=== PATIENT | female | born 1960 | race Caucasian/White ===

== ENCOUNTER 2016-07-28 17:18 | Emergency (ER) | payer SELFPAY ==
[~2016-07-28] VITALS: Ht 172.7 cm; Wt 100.0 kg
[2016-07-28 17:39] VITALS: BP 134/80; PULSE 80; RESP 16; TEMP 98; O2SAT 98
[2016-07-28] MEDS ORDERED: ZOLO50TA PO (17:39)
--- NOTE | 2016-07-28 17:43 | PD ---
HPI Chief Complaint: Injury Time Seen by Provider: 17:39 Travel History International Travel<30 days: No Contact w/Intl Traveler<30days: No Traveled to known affect area: No History of Present Illness HPI 56-year-old female presents to the ER today, slipped at the hotel pool, hyperextended her right knee where she states that she has had an ACL tear in the past, complaining of right knee and lower leg pains. She denies any head injury, loss of consciousness, or any other injuries. Modifying Factors: None Associated Signs & Symptoms: Right knee and lower leg injury Risk Factors: None PFSH Social History Tobacco Use: No Allergies-Medications (Allergen,Severity, Reaction): Coded Allergies: No Known Allergies (Unverified , 07/28/16) Reported Meds & Prescriptions Reported Meds & Active Scripts Active Reported Zoloft (Sertraline HCl) 50 Mg Tab 50 Mg PO DAILY Review of Systems Except as stated in HPI: all other systems reviewed are Neg Physical Exam Narrative GENERAL: Well-developed middle age white female patient currently and moderate distress. Awake and oriented 3. SKIN: Focused skin assessment warm/dry. HEAD: Atraumatic. Normocephalic. EYES: Pupils equal and round. No scleral icterus. No injection or drainage. ENT: No nasal bleeding or discharge. Mucous membranes pink and moist. NECK: Trachea midline. No JVD. CARDIOVASCULAR: Regular rate and rhythm. No murmur appreciated. RESPIRATORY: No accessory muscle use. Clear to auscultation. Breath sounds equal bilaterally. GASTROINTESTINAL: Abdomen soft, non-tender, nondistended. Hepatic and splenic margins not palpable. MUSCULOSKELETAL: No obvious deformities. No clubbing. No cyanosis. No edema. EXTREMITIES: No clubbing, cyanosis, or edema. There is notable ecchymosis and edema and tenderness on palpation of the right knee area especially below the patella, anterior and posterior drawer tests and lateral knee exam does not reveal any signs of significant instability, and tests to palpation of the right lateral malleolus with notable edema. Neurovascularly intact. NEUROLOGICAL: Awake and alert. No obvious cranial nerve deficits. Motor grossly within normal limits. Normal speech. PSYCHIATRIC: Appropriate mood and affect; insight and judgment normal. Data Data Last Documented VS Vital Signs Date Time Temp Pulse Resp B/P Pulse Ox O2 Delivery O2 Flow Rate FiO2 07/28/16 18:35 16 07/28/16 17:46 80 98 Room Air 07/28/16 17:39 98.0 134/80 Orders Ankle, Limited (Ap&Lat) (07/28/16 17:39) Knee, Ltd (1 Or 2vws) (07/28/16 17:39) Tibia/Fibula (Ap/Lat) (07/28/16 17:39) Morphine Inj (Morphine Inj) (07/28/16 17:45) Ondansetron Inj (Zofran Inj) (07/28/16 17:45) MDM Medical Decision Making Medical Screen Exam Complete: Yes Emergency Medical Condition: Yes Medical Record Reviewed: Yes Interpretation(s) Last 24 hours Impressions Tibia/Fibula X-Ray 07/28/161738 Signed Impressions: Service Date/Time: Thursday, July 28, 2016 17:57 - CONCLUSION: Minimal displaced acute distal fibula fracture. Andrzej Andrea MD Knee X-Ray 07/28/161738 Signed Impressions: Service Date/Time: Thursday, July 28, 2016 17:56 - CONCLUSION: 1. Intact right knee. 2. Nonspecific joint effusion. 3. Osteochondral body in the posterior notch. 4. Previous ACL reconstruction. Andrzej Andrea MD Ankle X-Ray 07/28/161738 Signed Impressions: Service Date/Time: Thursday, July 28, 2016 17:53 - CONCLUSION: Minimally displaced distal fibular fracture. Andrzej Andrea MD Differential Diagnosis Leg injuryfractures versus contusions versus dislocation versus sprain Narrative Course X-rays show a distal fibular fracture which is not significantly displaced. Case was discussed with Dr. Isbell who states that the patient can be released home with walking boots and crutches and follow-up with orthopedics. Return for any worsening in pain or new symptoms as needed. The plan has been discussed with the patient and she states understanding. Diagnosis Primary Impression: Knee sprain Additional Impression: Closed fracture of right distal fibula Referrals: Darrion Esteban Jr., MD 1 week Med/Other Pt SpecificInfo: Prescription(s) given Scripts Tramadol-Acetaminophen 37.5-325 mg Tab1 Tab PO Q6H PRN (PAIN) #20 TAB Ref 0 Prov:Gaby Broussard MD 07/28/16 Disposition: 01 DISCHARGE HOME Condition: Stable [place],Rewadee MD Jul 28, 2016 17:42
[2016-07-28] MEDS ORDERED: MORPHINE SULFATE 4 MG/ML INJ IV PUSH ONE (17:45)
[2016-07-28] MEDS ORDERED: ONDANSETRON HCL 4 MG/2 ML VIAL IV PUSH ONE (17:45)
--- NOTE | 2016-07-28 18:23 | RADRPT ---
EXAM DATE/TIME: 07/28/2016 17:53 [facility] COMPARISON: No previous studies available for comparison. INDICATIONS : Trauma/ fall MEDICAL HISTORY : None. SURGICAL HISTORY : Right ACL Repair ENCOUNTER: Initial ACUITY: 1 day PAIN SCORE: 0/10 LOCATION: Right Ankle FINDINGS: A minimally displaced oblique fracture is seen distally of the left fibula. Other bones of the right ankle are intact. No subluxation. There is lateral predominant soft tissue swelling. CONCLUSION: Minimally displaced distal fibular fracture. Andrzej Andrea MD on July 28, 2016 at 18:20 Board Certified Radiologist. This report was verified electronically.
--- NOTE | 2016-07-28 18:24 | RADRPT ---
EXAM DATE/TIME: 07/28/2016 17:56 [facility] COMPARISON: No previous studies available for comparison. INDICATIONS : Trauma/ slip and fall in a bathroom. MEDICAL HISTORY : None. SURGICAL HISTORY : Right ACL repair ENCOUNTER: Initial ACUITY: 1 day PAIN SCORE: 10/10 LOCATION: Right knee FINDINGS: There is no fracture or subluxation of the right knee. A moderate, nonspecific joint effusion is pres ent. Patient has had previous anterior cruciate ligament reconstruction. A 13 mm osteochondral body i s suspected in the posterior notch. Radiographic appearance of the extra-articular soft tissues withi n normal limits. CONCLUSION: 1. Intact right knee. 2. Nonspecific joint effusion. 3. Osteochondral body in the posterior notch. 4. Previous ACL reconstruction. Andrzej Andrea MD on July 28, 2016 at 18:21 Board Certified Radiologist. This report was verified electronically.
--- NOTE | 2016-07-28 18:26 | RADRPT ---
EXAM DATE/TIME: 07/28/2016 17:57 [facility] COMPARISON: No previous studies available for comparison. INDICATIONS : Trauma/ fall MEDICAL HISTORY : None. SURGICAL HISTORY : Right ACL repair ENCOUNTER: Initial ACUITY: 1 day PAIN SCORE: 0/10 LOCATION: Right tib/fib FINDINGS: Minimally displaced oblique fracture is seen in the distal shaft region of the right fibula. Right fi bula is otherwise intact. The right tibia is intact. CONCLUSION: Minimal displaced acute distal fibula fracture. Andrzej Andrea MD on July 28, 2016 at 18:22 Board Certified Radiologist. This report was verified electronically.
[2016-07-28 18:35] VITALS: RESP 16
[2016-07-28] MEDS ORDERED: TRAM-388 PO (19:05)
== END 2016-07-28 19:38 | disposition home or self-care (01) ==
LOC: NEPC 17:18
DX: S82.831A Other fracture of upper and lower end of right fibula, initial encounter for closed fracture (principal); S83.91XA Sprain of unspecified site of right knee, initial encounter; X50.0XXA Overexertion from strenuous movement or load, initial encounter; Y93.9 Activity, unspecified; Y92.59 Other trade areas as the place of occurrence of the external cause
CPT/HCPCS: 73560; 73590; 73600; 96374; 96375; 99284; E0113; J2270; J2405; L2114